=== PATIENT | female | born 1955 | race Caucasian/White ===

== ENCOUNTER 2017-01-27 20:42 | Emergency (ER) | payer BC ==
[2017-01-27 17:41] LABS: BASOPHILS 0.2 %; BASOPHILS ABSOLUTE 0.02 10/3/uL (0.0-0.16); EOSINOPHILS 0.9 %; EOSINOPHILS ABSOLUTE 0.09 10/3/uL (0.0-0.53); ER CBC TAT 0 Hrs 05 Mins; HEMOGLOBIN 13.5 g/dL (12.0-16.0); IMMATURE GRANULOCYTES 0.5 %; IMMATURE GRANULOCYTES ABSOLUTE 0.05 10/3/uL (0.0-0.11); LYMPHOCYTES 26.5 %; LYMPHOCYTES ABSOLUTE 2.68 10/3/uL (0.67-4.30); MEAN CORPUS HGB CONC 32.9 g/dL (32.0-36.0); MEAN CORPUSCULAR HEMOGLOB 27.1 pg (26.0-34.0); MEAN CORPUSCULAR VOLUME 82.3 fL (80-100); MEAN PLATELET VOLUME 10.6 fL (9.2-13.0); MONOCYTES 5.8 %; MONOCYTES ABSOLUTE 0.59 10/3/uL (0.21-1.20); NEUTROPHILS 66.1 %; NEUTROPHILS ABSOLUTE 6.68 10/3/uL (2.02-8.40); PLATELET COUNT 330 10/3/uL (150-400); RBC DISTRIBUTION WIDTH 15.5 % (12.0-16.0); RED CELL COUNT 4.98 10/6/uL (4.0-5.6); WHITE BLOOD CELLS 10.1 10/3/uL (4.5-10.5)
[2017-01-27 17:45] LABS: MANUAL DIFF NO %
[2017-01-27 17:56] LABS: BUN (BLOOD UREA NITROGEN) 16 MG/DL (6-23); CALCIUM, SERUM 8.9 MG/DL (8.5-10.4); CHEST PAIN PROFILE TAT 0 Hrs 20 Mins; CHLORIDE, SERUM 107 MMOL/L (96-112); CO2 (CARBON DIOXIDE) 25 MMOL/L (24-34); CREATININE 0.92 MG/DL (0.55-1.02); GFR AFRICAN AMERICAN 78 ML/MIN (>=60); GFR NON AFRICAN AMERICAN 68 ML/MIN (>=60); POTASSIUM, SERUM 3.9 MMOL/L (3.5-5.3); SODIUM, SERUM 144 MMOL/L (135-148); TROPONIN I <0.02 NG/ML (<0.05)
[2017-01-27 17:58] LABS: GLUCOSE, SERUM 185 MG/DL (60-99)
[2017-01-27 18:01] LABS: INTERNATIONAL NORMAL RATI 1.1 UNITS (-)
[2017-01-27 18:08] LABS: PROTIME (NOT ORD) 14.5 SEC (12.0-14.5)
[~2017-01-27 20:42] MED LIST: ACET500CAP PO; ACID REDUCER OR; ASA5GR PO; ASAB PO; B12250T PO; BLACK COHASH; BUM2 PO; BYDUREON2 MG SC; C5 PO; CARDCD240 PO; CARDCD360 PO; COR40 PO; COUMADIN6 MG PO; COUMADIN7.5 MG PO; CYANO1000T PO; DIGITEK0.125 MG PO; DIGITEK0.25 MG PO; DILT-XR120 MG PO; DILT-XR180 MG PO; DILT-XR240 MG PO; DSS PO; EFFEX75 PO; EFFEXXR75 PO; FERROUS PO; FERROUS SULF325 M1 PO; FLEX PO; FOLIC ACID800 MCG PO; FOLIC PO; GLUCPH PO; HALF81 PO; IRON OTC PO; IRON325 MG PO; KDUR10 PO; KLOR-CON M1010 MEQ PO; KLOR-CON M2020 MEQ PO; L40 PO; L80 PO; LAN125 PO; LAN25 PO; LEVAQUIN5T PO; LIPITOR20 PO; LOP100 PO; LOP50 PO; LORT7 PO; LORTAB PO; LORTAB10 PO; LOTE40 PO; LOTENSIN HCT1 TA2 PO; LOTENSIN HCT1 TA3 PO; MICRO-K10 MEQ PO; MVI PO; NEUR400 PO; NEUR600 PO; NEUR800 PO; NEXIUM40 PO; NORCO1 TAB PO; NORV25 PO; OXYCON10 PO; OXYCON20 PO; PCET PO; PERCOCET1 TA3 PO; PERCOCET1 TA4 PO; PLAQ200B PO; PRILO PO; PRILOSEC40 MG PO; PRIN5 PO; PROAIR HFA INH; RISP2 PO; RISP4 PO; SPIRIVA INH; SPIRIVA RESPIMAT INH; STOOL SOFTENER OTC PO; SUCR PO; SYMBICORT 160/41 INH INH; SYMBICORT 80/4.1 INH INH; TOPROL XL200 MG PO; TRIAMCINOLONE C80 GM TOP; TRIDERM0.1 % TOP; V5 PO; VITAMIN B-121000 MC1 SL; VITAMIN B-122500 MCG SL; XARELTO20 MG PO; ZANAFLEX 4 MG TA4 MG PO; ZANTAC 150 PO; ZANTAC150 MG PO
[2017-03-21] MEDS ORDERED: ZAROX2.5B PO (09:32)
[2017-03-21] MEDS ORDERED: TOPROL XL200 MG PO (09:33)
[2017-03-21] MEDS ORDERED: JANUVIA100 MG PO (10:14)
[2017-03-21] MEDS ORDERED: BYDUREON2 MG SQ (10:16)
[2017-04-08] MEDS ORDERED: FERROUS SULFATE PO (13:20)
[2017-04-08] MEDS ORDERED: CARDCD360 PO (13:23)
[2017-04-08] MEDS ORDERED: PRILO PO (13:25)
[2017-04-08] MEDS ORDERED: BYDUREON2 MG SQ (13:28)
[2017-04-08] MEDS ORDERED: SINGULAIR1 PO (13:30)
[2017-04-08] MEDS ORDERED: ATRONASAL6 NAS (13:31)
[2017-04-08] MEDS ORDERED: FLONASE NAS (13:31)
[2017-04-08] MEDS ORDERED: DUONEB INH (13:33)
== END 2017-01-27 21:12 | disposition home or self-care (01) ==
LOC: ER 20:42
PROVIDERS: Specialist
DX: E87.70 Fluid overload, unspecified (principal); R06.00 Dyspnea, unspecified; J45.909 Unspecified asthma, uncomplicated; I50.9 Heart failure, unspecified; I48.91 Unspecified atrial fibrillation; F31.9 Bipolar disorder, unspecified; E11.9 Type 2 diabetes mellitus without complications; Z87.891 Personal history of nicotine dependence; Z88.6 Allergy status to analgesic agent; Z88.5 Allergy status to narcotic agent
CPT/HCPCS: 71020; 80048; 83735; 83880; 84484; 85025; 85610; 85730; 93005; 99285

== ENCOUNTER 2017-03-12 18:52 | Emergency (ER) | payer BC ==
[2017-03-12 17:43] LABS: BASOPHILS 0.2 %; BASOPHILS ABSOLUTE 0.02 10/3/uL (0.0-0.16); EOSINOPHILS 1.5 %; EOSINOPHILS ABSOLUTE 0.13 10/3/uL (0.0-0.53); ER CBC TAT 0 Hrs 05 Mins; HEMATOCRIT 33.2 % (36.0-48.0); HEMOGLOBIN 10.8 g/dL (12.0-16.0); IMMATURE GRANULOCYTES 0.3 %; IMMATURE GRANULOCYTES ABSOLUTE 0.03 10/3/uL (0.0-0.11); LYMPHOCYTES 16.9 %; LYMPHOCYTES ABSOLUTE 1.49 10/3/uL (0.67-4.30); MANUAL DIFF NO %; MEAN CORPUS HGB CONC 32.5 g/dL (32.0-36.0); MEAN CORPUSCULAR HEMOGLOB 27.7 pg (26.0-34.0); MEAN CORPUSCULAR VOLUME 85.1 fL (80-100); MEAN PLATELET VOLUME 10.2 fL (9.2-13.0); MONOCYTES 9.5 %; MONOCYTES ABSOLUTE 0.84 10/3/uL (0.21-1.20); NEUTROPHILS 71.6 %; NEUTROPHILS ABSOLUTE 6.31 10/3/uL (2.02-8.40); PLATELET COUNT 288 10/3/uL (150-400); RBC DISTRIBUTION WIDTH 14.8 % (12.0-16.0); WHITE BLOOD CELLS 8.8 10/3/uL (4.5-10.5)
[2017-03-12 17:50] LABS: INTERNATIONAL NORMAL RATI 1.2 UNITS (-); PARTIAL THROMBO TIME 43.3 SEC (22.5-37.2); PROTIME (NOT ORD) 15.5 SEC (12.0-14.5)
[2017-03-12 17:59] LABS: BUN (BLOOD UREA NITROGEN) 17 MG/DL (6-23); CALCIUM, SERUM 8.6 MG/DL (8.5-10.4); CHEST PAIN PROFILE TAT 0 Hrs 21 Mins; CHLORIDE, SERUM 104 MMOL/L (96-112); CREATININE 0.74 MG/DL (0.55-1.02); GFR AFRICAN AMERICAN 102 ML/MIN (>=60); GFR NON AFRICAN AMERICAN 88 ML/MIN (>=60); POTASSIUM, SERUM 4.2 MMOL/L (3.5-5.3); SODIUM, SERUM 143 MMOL/L (135-148); TROPONIN I <0.02 NG/ML (<0.05)
[2017-03-12 18:00] LABS: CO2 (CARBON DIOXIDE) 31 MMOL/L (24-34); GLUCOSE, SERUM 129 MG/DL (60-99)
[2017-03-21] MEDS ORDERED: ZAROX2.5B PO (09:32)
[2017-03-21] MEDS ORDERED: TOPROL XL200 MG PO (09:33)
[2017-03-21] MEDS ORDERED: JANUVIA100 MG PO (10:14)
[2017-03-21] MEDS ORDERED: BYDUREON2 MG SQ (10:16)
[2017-04-08] MEDS ORDERED: FERROUS SULFATE PO (13:20)
[2017-04-08] MEDS ORDERED: CARDCD360 PO (13:23)
[2017-04-08] MEDS ORDERED: PRILO PO (13:25)
[2017-04-08] MEDS ORDERED: BYDUREON2 MG SQ (13:28)
[2017-04-08] MEDS ORDERED: SINGULAIR1 PO (13:30)
[2017-04-08] MEDS ORDERED: FLONASE NAS (13:31)
[2017-04-08] MEDS ORDERED: ATRONASAL6 NAS (13:31)
[2017-04-08] MEDS ORDERED: DUONEB INH (13:33)
== END 2017-03-12 21:06 | disposition home or self-care (01) ==
LOC: ER 18:52
PROVIDERS: Emergency Medicine
DX: R09.89 Other specified symptoms and signs involving the circulatory and respiratory systems (principal); K21.9 Gastro-esophageal reflux disease without esophagitis; E11.9 Type 2 diabetes mellitus without complications; I50.9 Heart failure, unspecified; I48.91 Unspecified atrial fibrillation; Z88.6 Allergy status to analgesic agent; Z88.5 Allergy status to narcotic agent; Z79.899 Other long term (current) drug therapy
CPT/HCPCS: 71020; 80048; 83735; 83880; 84484; 85025; 85610; 85730; 93005; 96374; 99285; A9270-GY

== ENCOUNTER 2017-04-10 10:14 | Inpatient (IN) | payer BC ==
[2017-04-09 12:55] LABS: BASOPHILS 0.3 %; BASOPHILS ABSOLUTE 0.04 10/3/uL (0.0-0.16); EOSINOPHILS ABSOLUTE 0.12 10/3/uL (0.0-0.53); HEMATOCRIT 37.1 % (36.0-48.0); HEMOGLOBIN 12.2 g/dL (12.0-16.0); IMMATURE GRANULOCYTES 0.3 %; IMMATURE GRANULOCYTES ABSOLUTE 0.04 10/3/uL (0.0-0.11); LYMPHOCYTES 25.3 %; LYMPHOCYTES ABSOLUTE 3.09 10/3/uL (0.67-4.30); MEAN CORPUS HGB CONC 32.9 g/dL (32.0-36.0); MEAN CORPUSCULAR HEMOGLOB 27.9 pg (26.0-34.0); MEAN CORPUSCULAR VOLUME 84.7 fL (80-100); MEAN PLATELET VOLUME 10.7 fL (9.2-13.0); MONOCYTES 7.8 %; MONOCYTES ABSOLUTE 0.96 10/3/uL (0.21-1.20); NEUTROPHILS 65.3 %; NEUTROPHILS ABSOLUTE 7.98 10/3/uL (2.02-8.40); PLATELET COUNT 293 10/3/uL (150-400); RBC DISTRIBUTION WIDTH 14.6 % (12.0-16.0); RED CELL COUNT 4.38 10/6/uL (4.0-5.6); WHITE BLOOD CELLS 12.2 10/3/uL (4.5-10.5)
[2017-04-09 12:56] LABS: MANUAL DIFF NO %
[2017-04-09 13:02] LABS: INTERNATIONAL NORMAL RATI 1.1 UNITS (-); PROTIME (NOT ORD) 13.9 SEC (12.0-14.5)
[2017-04-09 13:11] LABS: A/G RATIO 1.1 (0.7-1.9); ALBUMIN 3.9 G/DL (3.5-5.0); ALKALINE PHOSPHATASE 98 U/L (45-117); BUN (BLOOD UREA NITROGEN) 21 MG/DL (6-23); CALCIUM, SERUM 8.9 MG/DL (8.5-10.4); CHLORIDE, SERUM 99 MMOL/L (96-112); CO2 (CARBON DIOXIDE) 30 MMOL/L (24-34); CREATININE 1.18 MG/DL (0.55-1.02); GFR AFRICAN AMERICAN 58 ML/MIN (>=60); GFR NON AFRICAN AMERICAN 50 ML/MIN (>=60); GLOBULIN 3.6 G/DL (2.5-4.1); GLUCOSE, SERUM 204 MG/DL (60-99); POTASSIUM, SERUM 3.7 MMOL/L (3.5-5.3); SGOT(AST) 14 U/L (5-40); SGPT(ALT) 23 U/L (5-65); SODIUM, SERUM 139 MMOL/L (135-148); TOTAL BILIRUBIN 0.2 MG/DL (0-1.2); TOTAL PROTEIN 7.5 G/DL (6.0-8.5)
[2017-04-09 14:01] LABS: ASCORBIC ACID (UR NOT ORDER) NEG (NEG); BILIRUBIN, URINE NEGATIVE (NEG); KETONE, URINE NEGATIVE (NEG); LEUKOCYTE ESTERASE(NOT OR TRACE (NEG); WBC (NOT ORDERED) (RFLEX) 3 (0-5)
--- NOTE | ~2017-04-10 | OP ---
Record Of Operation [facility] [address] [place]. [address] NAME: PAPITO JORDAN : 57 STATUS : ADM IN PAT#: [id number] AGE: 62 ADM/REG DATE : 04/10/17 MR#: [id number] REPORT SERV DATE: 04/11/17 DICTATED BY: JONI ZUNIGA DATE: 04/11/17 REPORT STATUS : Draft TRANSCRIBED BY: MODL DATE: 04/11/17 DATE OF PROCEDURE: 04/10/2017 PREOPERATIVE DIAGNOSIS: Severe left knee degenerative joint disease. POSTOPERATIVE DIAGNOSIS: Severe left knee degenerative joint disease. OPERATION: Left posterior stabilized total knee replacement, cemented. SIDE: Left-sided. SIZE: See chart. ANESTHESIA: See chart. ESTIMATED BLOOD LOSS: About 10 mL. COMPLICATIONS: None. SPECIMENS: Articular surfaces. PROCEDURE: The patient was appropriately identified and marked. The operative side agreed with the consent form and it was checked by all members of the surgical team. The patient was taken to the operating room and anesthesia was induced per the anesthesiologist. The patient was carefully transferred to the operating table without incident. The patient received appropriate prophylactic antibiotics and a Chapa catheter was placed in the standard sterile technique. The patient was then carefully positioned, padded, prepped and draped in the normal sterile fashion. The operative leg had been appropriately identified and checked by all members of the operating team against the consent form and found to be the correct limb. The patient's lower extremity was then exsanguinated with an Edwin wrap and a tourniquet was inflated to 350 mm/Hg. Sharp dissection was carried out through a straight midline longitudinal incision and electrocautery through the fat. Sharp quad splitting approach was carried out between about the medial 10 percent of the tendon and the lateral 90 percent of the tendon and down around the medial aspect of the patella and then 1 cm medial to the tibial tubercle. The patella was carefully everted and the posterior fat pad was excised and gentle MCL elevation was carried out off the proximal medial tibia subperiosteally. IM guide was placed in the distal femur after using the appropriate drill. The distal femoral cutting guide was held with 2 pins and the distal cut made. Meniscal fragments and the ACL and the PCL were excised with electrocautery, carefully staying anterior to the posterior fat pad. The proximal tibial alignment guide was set appropriately and the proximal tibial cut made. Spacer block verified full extension with excellent mediolateral balance. Sizing guide was used to place 2 drill holes in the distal femur and the four-in-one cutting block was then placed, impacted and checked to be sure it would not notch with an margo wing and it was held with 2 pins. The anterior cut, posterior cut, anterior chamfer and posterior chamfer cuts were made. The pins were Record Of Operation [facility] [address] [place]. [address] NAME: PAPITO JORDAN : 57 STATUS : ADM IN PAT#: [id number] AGE: 62 ADM/REG DATE : 04/10/17 MR#: [id number] REPORT SERV DATE: 04/11/17 DICTATED BY: JONI ZUNIGA DATE: 04/11/17 REPORT STATUS : Draft TRANSCRIBED BY: AARON DATE: 04/11/17 removed and the block was removed. A posterior release was carried out with a curved 3/4 inch osteotome staying right on the bone posteriorly. The box-cut guide was then placed, impacted and held with 2 pins and a reciprocating saw was used to cut out the box. With the trial components in place, there was excellent medial/lateral balance. The patella was then measured with a caliper, cut first with an oscillating saw and then reamed with a patella reamer. With the trial patella in place, there was excellent patellar tracking. Rotation was marked on the tibia and the tibia prepared with a drill and stamp chisel. All surfaces were then copiously irrigated with pulsatile lavage, carefully dried and then vacuum-mixed cement was pressurized with a cement gun in a doughy phase. The tibial component was placed, impacted and excess cement was removed. The cement was then pressurized in the femur and placed on the posterior runners of the femoral component, which was placed, impacted and excess cement removed and the knee was brought out into extension on a trial spacer. The cement was then pressurized in the patella. Patellar component was then placed, clamped and excess cement was removed. Once all cement was hardened, the knee was taken through range of motion. Further extruded cement was removed with a small osteotome. Then based on the trial inserts, we decided on the actual insert, which was placed in the standard fashion and held with a locking mechanism. The knee was then copiously irrigated and then closed in a layered fashion over a medium Hemovac drain superolaterally with interrupted #1 in the deep fascia, 2-0 subcutaneous and mariel in the skin. The wounds were dressed sterilely and the tourniquet was deflated. The patient was then awakened and taken to the postanesthesia care unit without incident. All counts were correct at the end of the case. WTB/MODL Markell Zuniga M.D. / [id number] CC: Olga Smalls M.D.
--- NOTE | ~2017-04-10 | DS ---
Discharge Summary [facility] [address] [place]. [address] NAME: PAPITO JORDAN : 57 STATUS : DIS IN PAT#: [id number] AGE: 62 ADM/REG DATE : 04/10/17 MR#: [id number] REPORT SERV DATE: 07/09/17 DICTATED BY: JONI ZUNIGA DATE: 07/09/17 REPORT STATUS : Draft TRANSCRIBED BY: AARON DATE: 07/09/17 Data Collection from hospitalization DISCHARGE DIAGNOSES: 1. Severe left knee degenerative joint disease. 2. Hypertension. 3. Diabetes mellitus. 4. Coronary artery disease. 5. History of congestive heart failure. 6. History of sick sinus syndrome, status post pacemaker. 7. History of atrial fibrillation. 8. Chronic obstructive pulmonary disease. 9. Obstructive sleep apnea. 10.Gastroesophageal reflux disease. 11.Former smoker. CONSULTATIONS: None. PROCEDURES PERFORMED: Left posterior stabilized total knee replacement, cemented, 04/10/2017. PATHOLOGY: Joint, bone, and tissue, left knee - degenerative joint disease. MEDICATIONS: DuoNeb inhaled solution one nebulized inhaler four times a day as needed, ProAir two puffs via inhaler as needed, Lipitor 20 mg every morning, Symbicort two puffs via inhaler twice a day, Bumex 2 mg twice a day, vitamin B12 of 5000 mcg sublingually every morning, Lanoxin 0.125 mg every morning, Cardizem CD 360 mg every morning, Bydureon 2 mg subcutaneously every seven days, Flonase nasal spray one spray nasally every morning, folic acid 800 mcg every morning, Neurontin 600 mg four times a day, [place] 10/325 one tablet four times a day, Plaquenil 400 mg every morning, Atrovent two sprays nasally three times a day, Levaquin 750 mg daily, Prinivil 5 mg every morning, Zaroxolyn 2.5 mg every morning, Toprol- XL 200 mg twice a day, Singulair 10 mg every morning, Prilosec 20 mg twice a day, Zofran 4 mg every six hours as needed, Roxicodone 20 mg every four hours as needed, potassium chloride SR 10 mEq twice a day, Januvia 100 mg every morning, Spiriva two puffs via inhaler every morning, Zanaflex 4 mg at bedtime, triamcinolone one application topically twice a day as instructed, and Coumadin as instructed. CONDITION AT DISCHARGE: Stable. DISPOSITION: The patient was discharged home on an 1800-calorie diabetic diet with activities as instructed. She would follow up with me 04/23/2017. She would follow up with [facility] 04/19/2017. She would follow up with Dr. Rishi Mcadams on 04/22/2017. HOSPITAL COURSE: This is a 62-year-old female who has been seen in the clinic with complaints of moderate intermittent left knee pain as well as moderate intermittent left hip pain, both of about four months duration. The patient has severe left knee degenerative joint disease. Treatment options were discussed and it was elected to proceed with surgical Discharge Summary [address] [place]. [address] NAME: PAPITO JORDAN : 57 STATUS : DIS IN PAT#: [id number] AGE: 62 ADM/REG DATE : 04/10/17 MR#: [id number] REPORT SERV DATE: 07/09/17 DICTATED BY: JONI ZUNIGA DATE: 07/09/17 REPORT STATUS : Draft TRANSCRIBED BY: AARON DATE: 07/09/17 intervention. She was admitted to the hospital at this time for further evaluation and treatment. Upon admission, she was taken to the operating room where she underwent the above-mentioned procedure. She tolerated this well, and there were no complications. On postop day #1, she was up sitting in a bedside chair. YOVANI hose were in place. Metoprolol and lisinopril were continued. The patient was on digoxin and Cardizem. She would be on Xarelto-Coumadin for six weeks. Inhalers were continued. Discharge planning was performed. She was evaluated by [facility]. She continued to make slow progress. She did have some excessive pain. YOVANI hose remained in place. We encouraged the patient to be up walking. The patient has chronic diastolic congestive heart failure. She denied any shortness of breath. She began to feel better. Potassium supplementation was given. Level 2 sliding scale insulin continued as well as Levemir. Blood pressure was controlled. Urinalysis was negative. On 04/16/2017, she was doing much better. She was alert and cooperative. White count was 14.8. Discharge instructions were given. Due to her improved and stable condition, she was discharged home with the above-stated instructions. Information collected by: Carmen Walker I submit the above information as my discharge summary. RIO/AARON Markell Zuniga M.D. / [id number] CC: Olga Smalls M.D.
[~2017-04-10 10:14] MED LIST changes: +ATRONASAL6 NAS; +BYDUREON2 MG SQ; +DUONEB INH; +FERROUS SULFATE PO; +FLONASE NAS; +JANUVIA100 MG PO; +SINGULAIR1 PO; +ZAROX2.5B PO
[2017-04-11 04:57] LABS: HEMATOCRIT 33.4 % (36.0-48.0); HEMOGLOBIN 10.8 g/dL (12.0-16.0)
[2017-04-11 05:04] LABS: INTERNATIONAL NORMAL RATI 1.1 UNITS (-); PROTIME (NOT ORD) 13.6 SEC (12.0-14.5)
[2017-04-11 05:13] LABS: BUN (BLOOD UREA NITROGEN) 23 MG/DL (6-23); CALCIUM, SERUM 8.4 MG/DL (8.5-10.4); CHLORIDE, SERUM 100 MMOL/L (96-112); CO2 (CARBON DIOXIDE) 31 MMOL/L (24-34); CREATININE 0.91 MG/DL (0.55-1.02); GFR AFRICAN AMERICAN 79 ML/MIN (>=60); GFR NON AFRICAN AMERICAN 68 ML/MIN (>=60); GLUCOSE, SERUM 196 MG/DL (60-99); POTASSIUM, SERUM 3.4 MMOL/L (3.5-5.3); SODIUM, SERUM 138 MMOL/L (135-148)
[2017-04-12 05:14] LABS: BASOPHILS 0.1 %; BASOPHILS ABSOLUTE 0.01 10/3/uL (0.0-0.16); EOSINOPHILS 0 %; HEMATOCRIT 32.8 % (36.0-48.0); HEMOGLOBIN 10.7 g/dL (12.0-16.0); IMMATURE GRANULOCYTES 0.3 %; IMMATURE GRANULOCYTES ABSOLUTE 0.05 10/3/uL (0.0-0.11); LYMPHOCYTES 8.7 %; LYMPHOCYTES ABSOLUTE 1.36 10/3/uL (0.67-4.30); MEAN CORPUS HGB CONC 32.6 g/dL (32.0-36.0); MEAN CORPUSCULAR HEMOGLOB 27.4 pg (26.0-34.0); MEAN CORPUSCULAR VOLUME 83.9 fL (80-100); MEAN PLATELET VOLUME 11.1 fL (9.2-13.0); MONOCYTES 7.5 %; MONOCYTES ABSOLUTE 1.16 10/3/uL (0.21-1.20); NEUTROPHILS 83.4 %; NEUTROPHILS ABSOLUTE 12.98 10/3/uL (2.02-8.40); PLATELET COUNT 265 10/3/uL (150-400); RBC DISTRIBUTION WIDTH 15.1 % (12.0-16.0); RED CELL COUNT 3.91 10/6/uL (4.0-5.6); WHITE BLOOD CELLS 15.6 10/3/uL (4.5-10.5)
[2017-04-12 05:19] LABS: MANUAL DIFF NO %
[2017-04-12 05:24] LABS: INTERNATIONAL NORMAL RATI 1.1 UNITS (-); PROTIME (NOT ORD) 13.9 SEC (12.0-14.5)
[2017-04-12 05:29] LABS: BUN (BLOOD UREA NITROGEN) 23 MG/DL (6-23); CALCIUM, SERUM 8.8 MG/DL (8.5-10.4); CHLORIDE, SERUM 96 MMOL/L (96-112); CO2 (CARBON DIOXIDE) 32 MMOL/L (24-34); CREATININE 1.01 MG/DL (0.55-1.02); GFR AFRICAN AMERICAN 70 ML/MIN (>=60); GFR NON AFRICAN AMERICAN 60 ML/MIN (>=60); POTASSIUM, SERUM 3.8 MMOL/L (3.5-5.3); SODIUM, SERUM 136 MMOL/L (135-148)
[2017-04-12 05:51] LABS: GLUCOSE, SERUM 277 MG/DL (60-99)
[2017-04-13 07:34] LABS: INTERNATIONAL NORMAL RATI 1.1 UNITS (-); PROTIME (NOT ORD) 14.4 SEC (12.0-14.5)
[2017-04-13 07:42] LABS: BUN (BLOOD UREA NITROGEN) 32 MG/DL (6-23); CALCIUM, SERUM 8.7 MG/DL (8.5-10.4); CHLORIDE, SERUM 95 MMOL/L (96-112); CO2 (CARBON DIOXIDE) 34 MMOL/L (24-34); CREATININE 1.01 MG/DL (0.55-1.02); GFR AFRICAN AMERICAN 70 ML/MIN (>=60); GFR NON AFRICAN AMERICAN 60 ML/MIN (>=60); GLUCOSE, SERUM 180 MG/DL (60-99); POTASSIUM, SERUM 3.6 MMOL/L (3.5-5.3); SODIUM, SERUM 134 MMOL/L (135-148)
[2017-04-13 07:49] LABS: BASOPHILS 0.2 %; BASOPHILS ABSOLUTE 0.04 10/3/uL (0.0-0.16); EOSINOPHILS 0.3 %; EOSINOPHILS ABSOLUTE 0.06 10/3/uL (0.0-0.53); HEMATOCRIT 32.5 % (36.0-48.0); HEMOGLOBIN 10.3 g/dL (12.0-16.0); IMMATURE GRANULOCYTES 0.4 %; IMMATURE GRANULOCYTES ABSOLUTE 0.07 10/3/uL (0.0-0.11); LYMPHOCYTES 16.7 %; LYMPHOCYTES ABSOLUTE 2.91 10/3/uL (0.67-4.30); MEAN CORPUS HGB CONC 31.7 g/dL (32.0-36.0); MEAN CORPUSCULAR HEMOGLOB 27.1 pg (26.0-34.0); MEAN CORPUSCULAR VOLUME 85.5 fL (80-100); MEAN PLATELET VOLUME 10.7 fL (9.2-13.0); MONOCYTES 8.1 %; MONOCYTES ABSOLUTE 1.41 10/3/uL (0.21-1.20); NEUTROPHILS 74.3 %; NEUTROPHILS ABSOLUTE 12.89 10/3/uL (2.02-8.40); PLATELET COUNT 266 10/3/uL (150-400); RBC DISTRIBUTION WIDTH 15.4 % (12.0-16.0); WHITE BLOOD CELLS 17.4 10/3/uL (4.5-10.5)
[2017-04-13 07:52] LABS: MANUAL DIFF NO %
[2017-04-14 05:14] LABS: BASOPHILS 0.1 %; BASOPHILS ABSOLUTE 0.02 10/3/uL (0.0-0.16); EOSINOPHILS 0.6 %; EOSINOPHILS ABSOLUTE 0.11 10/3/uL (0.0-0.53); HEMOGLOBIN 8.8 g/dL (12.0-16.0); IMMATURE GRANULOCYTES 0.4 %; IMMATURE GRANULOCYTES ABSOLUTE 0.08 10/3/uL (0.0-0.11); LYMPHOCYTES ABSOLUTE 1.49 10/3/uL (0.67-4.30); MEAN CORPUS HGB CONC 32.4 g/dL (32.0-36.0); MEAN CORPUSCULAR HEMOGLOB 28.1 pg (26.0-34.0); MEAN CORPUSCULAR VOLUME 86.9 fL (80-100); MEAN PLATELET VOLUME 10.5 fL (9.2-13.0); MONOCYTES 9.1 %; MONOCYTES ABSOLUTE 1.69 10/3/uL (0.21-1.20); NEUTROPHILS 81.8 %; NEUTROPHILS ABSOLUTE 15.12 10/3/uL (2.02-8.40); RBC DISTRIBUTION WIDTH 15.8 % (12.0-16.0); RED CELL COUNT 3.13 10/6/uL (4.0-5.6); WHITE BLOOD CELLS 18.5 10/3/uL (4.5-10.5)
[2017-04-14 05:16] LABS: HEMATOCRIT 27.2 % (36.0-48.0); MANUAL DIFF NO %; PLATELET COUNT 171 10/3/uL (150-400)
[2017-04-14 05:32] LABS: CREATININE 1.11 MG/DL (0.55-1.02); GFR AFRICAN AMERICAN 62 ML/MIN (>=60); GFR NON AFRICAN AMERICAN 54 ML/MIN (>=60); POTASSIUM, SERUM 3.2 MMOL/L (3.5-5.3)
[2017-04-14 05:34] LABS: BUN (BLOOD UREA NITROGEN) 38 MG/DL (6-23); CHLORIDE, SERUM 73 MMOL/L (96-112); CO2 (CARBON DIOXIDE) 22 MMOL/L (24-34); GLUCOSE, SERUM 142 MG/DL (60-99); SODIUM, SERUM 142 MMOL/L (135-148)
[2017-04-14 08:23] LABS: INTERNATIONAL NORMAL RATI 1.3 UNITS (-); PROTIME (NOT ORD) 15.6 SEC (12.0-14.5)
[2017-04-14 11:25] LABS: ASCORBIC ACID (UR NOT ORDER) NEG (NEG); BILIRUBIN, URINE NEGATIVE (NEG); KETONE, URINE NEGATIVE (NEG); LEUKOCYTE ESTERASE(NOT OR NEG (NEG); WBC (NOT ORDERED) (RFLEX) 1 (0-5)
[2017-04-15 05:26] LABS: INTERNATIONAL NORMAL RATI 1.4 UNITS (-); PROTIME (NOT ORD) 17.1 SEC (12.0-14.5)
[2017-04-15] MEDS ORDERED: ZOFRAN4 PO (08:50)
[2017-04-15] MEDS ORDERED: OXYCOD PO (08:50)
[2017-04-15 15:33] LABS: BUN (BLOOD UREA NITROGEN) 77 MG/DL (6-23); CALCIUM, SERUM 8.8 MG/DL (8.5-10.4); CHLORIDE, SERUM 90 MMOL/L (96-112); CO2 (CARBON DIOXIDE) 31 MMOL/L (24-34); CREATININE 2.26 MG/DL (0.55-1.02); GFR AFRICAN AMERICAN 26 ML/MIN (>=60); GFR NON AFRICAN AMERICAN 23 ML/MIN (>=60); GLUCOSE, SERUM 118 MG/DL (60-99); POTASSIUM, SERUM 4.1 MMOL/L (3.5-5.3); SODIUM, SERUM 132 MMOL/L (135-148)
[2017-04-15 15:35] LABS: HEMATOCRIT 29.1 % (36.0-48.0); HEMOGLOBIN 9.4 g/dL (12.0-16.0); MANUAL DIFF YES %; MEAN CORPUS HGB CONC 32.3 g/dL (32.0-36.0); MEAN CORPUSCULAR HEMOGLOB 27.2 pg (26.0-34.0); MEAN CORPUSCULAR VOLUME 84.3 fL (80-100); MEAN PLATELET VOLUME 10.6 fL (9.2-13.0); PLATELET COUNT 276 10/3/uL (150-400); RBC DISTRIBUTION WIDTH 15.3 % (12.0-16.0); RED CELL COUNT 3.45 10/6/uL (4.0-5.6); WHITE BLOOD CELLS 19.7 10/3/uL (4.5-10.5)
[2017-04-15 15:49] LABS: BAND NEUTROPHILS 1 %; EOSINOPHILS 1 %; LYMPHOCYTES 5 %; LYMPHOCYTES ABSOLUTE (CALC) 0.99 10/3/uL (0.67-4.30); MONOCYTES 3 %; MONOCYTES ABSOLUTE (CALC) 0.59 10/3/uL (0.21-1.20); NEUTROPHILS ABSOLUTE (CALC) 17.93 10/3/uL (2.02-8.40); SEGMENTED NEUTROPHIL (0) 90 %; TOTAL NUCLEATED CELLS 100
[2017-04-15 15:51] LABS: PLATELET ESTIMATE ADQ (ADEQUATE)
[2017-04-15 15:52] LABS: RBC MORPHOLOGY NORM (NORMAL)
[2017-04-16 04:16] LABS: BASOPHILS 0.1 %; BASOPHILS ABSOLUTE 0.02 10/3/uL (0.0-0.16); EOSINOPHILS 2.3 %; EOSINOPHILS ABSOLUTE 0.34 10/3/uL (0.0-0.53); HEMATOCRIT 30.6 % (36.0-48.0); IMMATURE GRANULOCYTES 0.3 %; IMMATURE GRANULOCYTES ABSOLUTE 0.05 10/3/uL (0.0-0.11); LYMPHOCYTES 10.5 %; LYMPHOCYTES ABSOLUTE 1.55 10/3/uL (0.67-4.30); MEAN CORPUS HGB CONC 32.7 g/dL (32.0-36.0); MEAN CORPUSCULAR HEMOGLOB 27.7 pg (26.0-34.0); MEAN CORPUSCULAR VOLUME 84.8 fL (80-100); MEAN PLATELET VOLUME 10.4 fL (9.2-13.0); MONOCYTES 7.6 %; MONOCYTES ABSOLUTE 1.13 10/3/uL (0.21-1.20); NEUTROPHILS 79.2 %; NEUTROPHILS ABSOLUTE 11.69 10/3/uL (2.02-8.40); PLATELET COUNT 284 10/3/uL (150-400); RBC DISTRIBUTION WIDTH 15.1 % (12.0-16.0); RED CELL COUNT 3.61 10/6/uL (4.0-5.6); WHITE BLOOD CELLS 14.8 10/3/uL (4.5-10.5)
[2017-04-16 04:18] LABS: MANUAL DIFF NO %
[2017-04-16 04:21] LABS: INTERNATIONAL NORMAL RATI 1.5 UNITS (-); PROTIME (NOT ORD) 17.9 SEC (12.0-14.5)
[2017-04-16 04:28] LABS: CALCIUM, SERUM 9.1 MG/DL (8.5-10.4); CHLORIDE, SERUM 96 MMOL/L (96-112); CO2 (CARBON DIOXIDE) 35 MMOL/L (24-34); GFR AFRICAN AMERICAN 42 ML/MIN (>=60); GFR NON AFRICAN AMERICAN 36 ML/MIN (>=60); GLUCOSE, SERUM 112 MG/DL (60-99); POTASSIUM, SERUM 3.8 MMOL/L (3.5-5.3); SODIUM, SERUM 137 MMOL/L (135-148)
[2017-04-16 04:29] LABS: BUN (BLOOD UREA NITROGEN) 72 MG/DL (6-23); CREATININE 1.53 MG/DL (0.55-1.02)
[2017-04-16] MEDS ORDERED: LEVAQUIN750 MG PO (11:06)
[2017-04-16] MEDS ORDERED: C5 (11:11)
== END 2017-04-16 17:40 | disposition home or self-care (01) | DRG 470 ==
LOC: SDC/OF 10:14 → PACU 15:22 → 3JRC 17:46 → 3SO 04-14 16:01
PROVIDERS: Nurse Practitioner; Nurse Practitioner Acute Care; Specialist
PROC: 3E0T3CZ (ICD-10-PCS; principal; 2017-04-10 12:00)
PROC: 0SRD0J9 Replacement of Left Knee Joint with Synthetic Substitute, Cemented, Open Approach (ICD-10-PCS; principal; 2017-04-10 12:00)
DX: M17.12 Unilateral primary osteoarthritis, left knee (principal); N17.9 Acute kidney failure, unspecified; I11.0 Hypertensive heart disease with heart failure; I50.32 Chronic diastolic (congestive) heart failure; E11.22 Type 2 diabetes mellitus with diabetic chronic kidney disease; I25.10 Atherosclerotic heart disease of native coronary artery without angina pectoris; Z95.0 Presence of cardiac pacemaker; J44.9 Chronic obstructive pulmonary disease, unspecified; E78.5 Hyperlipidemia, unspecified; K21.9 Gastro-esophageal reflux disease without esophagitis; I48.91 Unspecified atrial fibrillation; Z79.01 Long term (current) use of anticoagulants; E87.6 Hypokalemia; I12.9 Hypertensive chronic kidney disease with stage 1 through stage 4 chronic kidney disease, or unspecified chronic kidney disease; N18.9 Chronic kidney disease, unspecified
CPT/HCPCS: 71010; 71020; 80048; 80053; 81001; 82962; 84145; 85014; 85018; 85025; 85610; 87070; 87205; 87641; 88305; 88311; 94640; 97110-GP; 97116-GP; 97162-GP; 97165-GO; 97530-GP; 97535-GO; A9270-GY; C1776; J0690; J1885; J1940; J2250; J2274; J2405; J2795; J3010

== ENCOUNTER 2017-04-18 14:39 | Emergency (ER) | payer BC ==
[~2017-04-18 14:39] MED LIST changes: +C5; +LEVAQUIN750 MG PO; +OXYCOD PO; +ZOFRAN4 PO
[2017-04-18 15:29] LABS: BASOPHILS 0.2 %; BASOPHILS ABSOLUTE 0.03 10/3/uL (0.0-0.16); EOSINOPHILS 1.7 %; EOSINOPHILS ABSOLUTE 0.21 10/3/uL (0.0-0.53); ER CBC TAT 0 Hrs 03 Mins; HEMATOCRIT 30.7 % (36.0-48.0); HEMOGLOBIN 10.1 g/dL (12.0-16.0); IMMATURE GRANULOCYTES 1.1 %; IMMATURE GRANULOCYTES ABSOLUTE 0.14 10/3/uL (0.0-0.11); LYMPHOCYTES 18.7 %; LYMPHOCYTES ABSOLUTE 2.33 10/3/uL (0.67-4.30); MEAN CORPUS HGB CONC 32.9 g/dL (32.0-36.0); MEAN CORPUSCULAR HEMOGLOB 27.5 pg (26.0-34.0); MEAN CORPUSCULAR VOLUME 83.7 fL (80-100); MEAN PLATELET VOLUME 9.9 fL (9.2-13.0); MONOCYTES 9.9 %; MONOCYTES ABSOLUTE 1.23 10/3/uL (0.21-1.20); NEUTROPHILS 68.4 %; NEUTROPHILS ABSOLUTE 8.49 10/3/uL (2.02-8.40); RBC DISTRIBUTION WIDTH 15.1 % (12.0-16.0); RED CELL COUNT 3.67 10/6/uL (4.0-5.6); WHITE BLOOD CELLS 12.4 10/3/uL (4.5-10.5)
[2017-04-18 15:30] LABS: MANUAL DIFF NO %; PLATELET COUNT 408 10/3/uL (150-400)
[2017-04-18 15:37] LABS: INTERNATIONAL NORMAL RATI 1.8 UNITS (-); PARTIAL THROMBO TIME 48.5 SEC (22.5-37.2); PROTIME (NOT ORD) 20.7 SEC (12.0-14.5)
[2017-04-18 15:44] LABS: CALCIUM, SERUM 9.1 MG/DL (8.5-10.4); CHEST PAIN PROFILE TAT 0 Hrs 18 Mins; CHLORIDE, SERUM 93 MMOL/L (96-112); CO2 (CARBON DIOXIDE) 36 MMOL/L (24-34); CREATININE 1.69 MG/DL (0.55-1.02); GFR AFRICAN AMERICAN 37 ML/MIN (>=60); GFR NON AFRICAN AMERICAN 32 ML/MIN (>=60); POTASSIUM, SERUM 4.2 MMOL/L (3.5-5.3); SODIUM, SERUM 135 MMOL/L (135-148); TROPONIN I <0.02 NG/ML (<0.05)
[2017-04-18 15:47] LABS: BUN (BLOOD UREA NITROGEN) 49 MG/DL (6-23); GLUCOSE, SERUM 139 MG/DL (60-99)
[2017-04-18] MEDS ORDERED: SPIRIVA RESPIMAT INH (18:37)
[2017-04-18] MEDS ORDERED: SYMBICORT 80/4.1 INH INH (18:38)
[2017-04-18] MEDS ORDERED: TRIAMCINOLONE C80 GM TOP (18:38)
[2017-04-18] MEDS ORDERED: XARELTO20 MG PO (18:38)
[2017-04-18] MEDS ORDERED: LOP100 PO (18:39)
[2017-04-18] MEDS ORDERED: FOLIC ACID800 MCG PO (18:39)
[2017-04-18] MEDS ORDERED: KDUR20 PO (18:39)
[2017-04-18] MEDS ORDERED: PLAQ200B PO (18:39)
[2017-04-18] MEDS ORDERED: FERROUS SULF325 M1 PO (18:39)
[2017-04-18] MEDS ORDERED: PROAIR HFA INH (18:40)
[2017-04-18] MEDS ORDERED: LIPITOR20 PO (18:40)
[2017-04-18] MEDS ORDERED: NEXIUM40 PO (18:41)
[2017-04-18] MEDS ORDERED: CARDIZEM LA360 MG PO (18:41)
[2017-04-18] MEDS ORDERED: CYANO1000T PO (18:41)
[2017-04-18] MEDS ORDERED: NEUR600 PO (18:42)
[2017-04-18] MEDS ORDERED: NORCO1 TAB PO (18:42)
[2017-04-18] MEDS ORDERED: OXYCOD PO (18:42)
[2017-04-18] MEDS ORDERED: BUM2 PO (18:43)
[2017-04-18] MEDS ORDERED: ZANAFLEX 4 MG TA4 MG PO (18:43)
[2017-04-18] MEDS ORDERED: LAN125 PO (18:43)
[2017-04-18] MEDS ORDERED: JANUVIA100 MG PO (18:44)
[2017-04-18] MEDS ORDERED: SINGULAIR1 PO (18:44)
[2017-04-18] MEDS ORDERED: ZAROX2.5B PO (18:44)
[2017-04-18] MEDS ORDERED: BYDUREON2 MG SQ (18:44)
[2017-04-18] MEDS ORDERED: FLONASE NAS (18:44)
[2017-04-18] MEDS ORDERED: ATRONASAL6 NAS (18:45)
[2017-04-18] MEDS ORDERED: PRIN5 PO (18:45)
[2017-04-18] MEDS ORDERED: DUONEB INH (18:45)
== END 2017-04-18 19:58 | disposition home or self-care (01) ==
LOC: ER 14:39
PROVIDERS: Emergency Medicine
DX: N17.9 Acute kidney failure, unspecified (principal); J44.1 Chronic obstructive pulmonary disease with (acute) exacerbation; G89.18 Other acute postprocedural pain; M25.562 Pain in left knee; I10 Essential (primary) hypertension; E11.9 Type 2 diabetes mellitus without complications; Z99.81 Dependence on supplemental oxygen; Z88.5 Allergy status to narcotic agent; Z88.8 Allergy status to other drugs, medicaments and biological substances; Z79.01 Long term (current) use of anticoagulants; Z79.84 Long term (current) use of oral hypoglycemic drugs; Z79.899 Other long term (current) drug therapy
CPT/HCPCS: 71020; 73560-LT; 80048; 83735; 84484; 85025; 85610; 85730; 93005; 93971; 94640; 96374; 96375; 96376; 99284; J2405

== ENCOUNTER 2017-08-12 10:34 | Emergency (ER) | payer BC ==
[~2017-08-12 10:34] MED LIST changes: +CARDIZEM LA360 MG PO; +KDUR20 PO
[2017-08-12 12:34] LABS: BASOPHILS 0.3 %; BASOPHILS ABSOLUTE 0.03 10/3/uL (0.0-0.16); EOSINOPHILS 0.5 %; EOSINOPHILS ABSOLUTE 0.06 10/3/uL (0.0-0.53); ER CBC TAT 0 Hrs 07 Mins; HEMATOCRIT 35.5 % (36.0-48.0); IMMATURE GRANULOCYTES 0.3 %; IMMATURE GRANULOCYTES ABSOLUTE 0.04 10/3/uL (0.0-0.11); LYMPHOCYTES 14.1 %; LYMPHOCYTES ABSOLUTE 1.69 10/3/uL (0.67-4.30); MEAN CORPUSCULAR HEMOGLOB 25.3 pg (26.0-34.0); MEAN CORPUSCULAR VOLUME 81.8 fL (80-100); MONOCYTES 5.8 %; MONOCYTES ABSOLUTE 0.69 10/3/uL (0.21-1.20); NEUTROPHILS ABSOLUTE 9.47 10/3/uL (2.02-8.40); PLATELET COUNT 295 10/3/uL (150-400); RBC DISTRIBUTION WIDTH 18.7 % (12.0-16.0); RED CELL COUNT 4.34 10/6/uL (4.0-5.6)
[2017-08-12 12:35] LABS: MANUAL DIFF NO %
[2017-08-12 12:40] LABS: INTERNATIONAL NORMAL RATI 1.5 UNITS (-)
[2017-08-12 12:48] LABS: CALCIUM, SERUM 9.4 MG/DL (8.5-10.4); CHEST PAIN PROFILE TAT 0 Hrs 21 Mins; CHLORIDE, SERUM 104 MMOL/L (96-112); CO2 (CARBON DIOXIDE) 30 MMOL/L (24-34); CREATININE 0.72 MG/DL (0.55-1.02); GFR AFRICAN AMERICAN 105 ML/MIN (>=60); GFR NON AFRICAN AMERICAN 90 ML/MIN (>=60); POTASSIUM, SERUM 3.5 MMOL/L (3.5-5.3); SODIUM, SERUM 140 MMOL/L (135-148); TROPONIN I <0.02 NG/ML (<0.05)
[2017-08-12 12:49] LABS: BUN (BLOOD UREA NITROGEN) 15 MG/DL (6-23); GLUCOSE, SERUM 149 MG/DL (60-99)
== END 2017-08-12 16:04 | disposition home or self-care (01) ==
LOC: ER 10:34
PROVIDERS: Hospitalist
DX: I50.20 Unspecified systolic (congestive) heart failure (principal); J44.9 Chronic obstructive pulmonary disease, unspecified; E11.9 Type 2 diabetes mellitus without complications; Z88.5 Allergy status to narcotic agent; Z88.6 Allergy status to analgesic agent; Z79.899 Other long term (current) drug therapy
CPT/HCPCS: 71020; 80048; 83735; 83880; 84484; 85025; 85610; 85730; 93005; 99285